=== PATIENT | female | born 1940 | race Caucasian/White ===

== ENCOUNTER → 2021-07-06 | Outpatient (CLI) | payer SELFPAY | LOC: M LABSMTC 12:09 | PROVIDERS: ATTEND Pediatrics | DX: Z20.822 Contact with and (suspected) exposure to COVID-19 (principal) ==

== ENCOUNTER 2024-04-30 10:21 | Day surgery (SDC) | payer BC, MEDICARE ==
[~2024-04-30] VITALS: Ht 154.9 cm; Wt 63.0 kg
[~2024-04-30 10:21] MED LIST: ATROPINE SULFATE 1% OPHTH SOLN 2ML BTL OS SCH; FOLI1TAB11 PO; GABA-1171 PO; LEVO150T7 PO; LIDOCAINE 3.5 % 1ML OPHTH TOPICAL GEL OU ONE; OFLOXACIN 0.3 % (OCUFLOX) OPTH SOL 5ML OS ONE; PANT40TA29 PO; PHENYLEPHRINE 10% OPHTH SOL 5ML OS PRN; PHENYLEPHRINE 2.5% OPHTH SOL 2ML OS SCH; THERTAB52 PO; TROPICAMIDE 1% OPHTH SOLN 15ML OS SCH; ZOLO100T PO
[2024-04-30] MEDS ORDERED: fentaNYL 100 MCG/2 ML INJECTION As Ordered ONE (11:30)
[2024-04-30] MEDS: LIDOCAINE 1% SDV 5ML VIAL As Ordered ONE (13:52)
[2024-04-30] MEDS: BSS IRRIG/VANCO(10MG)/TOBRA(5MG)/EPINEPH(1:1000-0.5CC)500ML BAG-ORONLY As Ordered ONE (13:52)
[2024-04-30] MEDS: CEFUROXIME 1MG/0.1ML INTRACAMERAL INJ As Ordered ONE (14:00)
[2024-04-30 14:05] VITALS: BP 175/76; TEMP 97.1; O2SAT 94
== END 2024-04-30 14:27 | disposition home or self-care (01) ==
LOC: M SDC 10:21
PROVIDERS: ATTEND Ophthalmology
DX: H25.12 Age-related nuclear cataract, left eye (principal); I10 Essential (primary) hypertension; E03.9 Hypothyroidism, unspecified; K21.9 Gastro-esophageal reflux disease without esophagitis; F41.9 Anxiety disorder, unspecified; F32.A Depression, unspecified; Z79.899 Other long term (current) drug therapy; Z98.84 Bariatric surgery status; G47.33 Obstructive sleep apnea (adult) (pediatric)
CPT/HCPCS: 66984; 92015; J0697; J3010; V2632

== ENCOUNTER 2024-05-21 06:05 | Day surgery (SDC) | payer MEDICARE ==
[~2024-05-21] VITALS: Ht 152.4 cm; Wt 59.7 kg
[~2024-05-21 06:05] MED LIST changes: -ATROPINE SULFATE 1% OPHTH SOLN 2ML BTL OS SCH; -LIDOCAINE 3.5 % 1ML OPHTH TOPICAL GEL OU ONE; -OFLOXACIN 0.3 % (OCUFLOX) OPTH SOL 5ML OS ONE; +PHENYLEPHRINE 10% OPHTH SOL 5ML OD PRN; -PHENYLEPHRINE 10% OPHTH SOL 5ML OS PRN; -PHENYLEPHRINE 2.5% OPHTH SOL 2ML OS SCH; -TROPICAMIDE 1% OPHTH SOLN 15ML OS SCH
[2024-05-21] MEDS: TROPICAMIDE 1% OPHTH SOLN 15ML OD SCH (06:46)
[2024-05-21] MEDS: PHENYLEPHRINE 2.5% OPHTH SOL 2ML OD SCH (06:46)
[2024-05-21] MEDS: CYCLOPENTOLATE 1% OPHTH SOLN 2ML BTL OD SCH (06:47)
[2024-05-21] MEDS: OFLOXACIN 0.3 % (OCUFLOX) OPTH SOL 5ML OD ONE (06:47)
[2024-05-21] MEDS: LIDOCAINE 3.5 % 1ML OPHTH TOPICAL GEL OU ONE (06:47)
[2024-05-21] MEDS ORDERED: MIDAZOLAM INJ 2MG/2ML VIAL As Ordered ONE (07:08)
[2024-05-21] MEDS: CEFUROXIME 1MG/0.1ML INTRACAMERAL INJ As Ordered ONE (07:46)
[2024-05-21] MEDS: BSS IRRIG/VANCO(10MG)/TOBRA(5MG)/EPINEPH(1:1000-0.5CC)500ML BAG-ORONLY As Ordered ONE (07:46)
[2024-05-21] MEDS: LIDOCAINE 1% SDV 5ML VIAL As Ordered ONE (07:46)
[2024-05-21 08:00] VITALS: BP 139/85; TEMP 96.9; O2SAT 96
== END 2024-05-21 08:21 | disposition home or self-care (01) ==
LOC: M SDC 06:05
PROVIDERS: ATTEND Ophthalmology
DX: H25.11 Age-related nuclear cataract, right eye (principal); I10 Essential (primary) hypertension; E03.9 Hypothyroidism, unspecified; K21.9 Gastro-esophageal reflux disease without esophagitis; G47.30 Sleep apnea, unspecified; G62.9 Polyneuropathy, unspecified; Z79.899 Other long term (current) drug therapy; Z79.890 Hormone replacement therapy; Z90.710 Acquired absence of both cervix and uterus; Z98.84 Bariatric surgery status
CPT/HCPCS: 66984; 92015; J0697; J2250; V2632

== ENCOUNTER 2024-07-19 02:03 | Inpatient (IN) | payer MEDICARE ==
[2024-07-19] VITALS (7 sets, daily range): BP systolic 107–135; BP diastolic 59–65; TEMP 97.7–98.2; O2SAT 96–97
[~2024-07-19] VITALS: Ht 152.4 cm; Wt 57.7 kg
[~2024-07-19 02:03] MED LIST changes: -PHENYLEPHRINE 10% OPHTH SOL 5ML OD PRN
[2024-07-19] MEDS: ONDANSETRON 4MG 2ML VIAL IV ONE ×2 (03:21→07:48)
[2024-07-19] MEDS: LR 1,000 ML IV ONE (08:00)
[2024-07-19] MEDS ORDERED: ISOVUE-370 76% 100ML VIAL As Ordered ONE (08:39)
[2024-07-19] MEDS: NS (Normal Saline) 0.9% 1,000 ML IV ONE (08:45)
[2024-07-19] MEDS: PANTOPRAZOLE 40MG VIAL IV ONE (09:10)
[2024-07-19] MEDS: MORPHINE 4 MG/ML 1ML VIAL IV ONE ×2 (09:23→10:42)
[2024-07-19 09:33] LABS: LIPASE 27 U/L (12-53)
[2024-07-19 09:34] LABS: BASO % 0.3 % (0.0-1.0); EOS % 0.6 % (0.0-3.0); HEMATOCRIT 23.6 % (36.0-47.0); HEMOGLOBIN 7.8 g/dl (12.0-15.5); LYMPH # 0.6 10^3/uL (1.5-5.0); MEAN CORPUSCULAR HEMOGLOBIN 32.6 pg (27.0-33.0); MEAN CORPUSCULAR HGB CONC 33.1 g/dl (32.0-36.5); MEAN CORPUSCULAR VOLUME 98.7 fl (80.0-96.0); MONO # 0.3 10^3/uL (0.0-0.8); MONO % 10.2 % (2.0-8.0); NEUTROPHILS # 2.2 10^3/uL (1.5-8.5); NEUTROPHILS % 69.6 % (36.0-66.0); PLATELET COUNT, AUTOMATED 143 10^3/uL (150-450); RED BLOOD COUNT 2.39 10^6/uL (4.00-5.40); WHITE BLOOD COUNT 3.2 10^3/uL (4.0-10.0)
[2024-07-19 09:35] LABS: ALBUMIN 2.5 G/DL (3.2-5.2); ALKALINE PHOSPHATASE 74 U/L (35-104); ALT/SGPT 17 U/L (7.0-40); AST/SGOT 22 U/L (<34); BILIRUBIN,TOTAL 0.6 MG/DL (0.3-1.2); BLOOD UREA NITROGEN 21 MG/DL (9-23); CALCIUM LEVEL 7.6 MG/DL (8.3-10.6); CARBON DIOXIDE LEVEL 24 MMOL/L (20-31); CHLORIDE LEVEL 109 MMOL/L (98-107); CREATININE FOR GFR 0.85 MG/DL (0.55-1.30); GLOMERULAR FILTRATION RATE > 60.0 (>32); GLUCOSE, FASTING 88 MG/DL (74-106); POTASSIUM SERUM 3.7 MMOL/L (3.5-5.1); SODIUM LEVEL 142 MMOL/L (136-145); TOTAL PROTEIN 5.2 G/DL (5.7-8.2)
[2024-07-19] MEDS: NS 0.9% IV ONE (10:15)
[2024-07-19] MEDS: [UNRECOGNIZED DRUG - OTHER] IV ONE (10:15)
[2024-07-19] MEDS ORDERED: HYDROMORPHONE HCL 0.5 MG/ 0.5 ML SYRINGE IV PRN ×2 (10:30→11:20)
[2024-07-19] MEDS ORDERED: VASOPRESSIN IN 0.9 % NACL 20 UNIT in IV 1 EA IV SCH (10:40)
[2024-07-19] MEDS ORDERED: NOREPINEPHRINE 4MG IN D5 250ML 4 MG in IV 1 EA IV SCH (10:40)
[2024-07-19] MEDS ORDERED: DESFLURANE 240 ML INHALANT As Ordered ONE (10:42)
[2024-07-19] MEDS ORDERED: SEVOFLURANE INHAL SOLN 250 ML BTL As Ordered ONE (10:42)
[2024-07-19 11:43] LABS: C REACTIVE PROTEIN QUANTITATIV 17.31 MG/DL (<1.0)
[2024-07-19] MEDS ORDERED: ETOMIDATE INJ 20MG/10ML VIAL As Ordered ONE (11:47)
[2024-07-19] MEDS ORDERED: propofoL 200 MG/20 ML VIAL As Ordered ONE (11:47)
[2024-07-19] MEDS ORDERED: SUGAMMADEX SODIUM 500 MG/5 ML VIAL (BRIDION) As Ordered ONE (11:47)
[2024-07-19] MEDS ORDERED: fentaNYL 100 MCG/2 ML INJECTION As Ordered ONE (11:47)
[2024-07-19] MEDS ORDERED: ONDANSETRON 4MG 2ML VIAL As Ordered ONE (11:47)
[2024-07-19] MEDS ORDERED: ROCURONIUM BROMIDE 50MG/5ML VIAL As Ordered ONE (11:47)
[2024-07-19] MEDS ORDERED: LIDOCAINE 2% 100MG/5ML SDV (FOR ANES.) As Ordered ONE (11:47)
[2024-07-19 11:55] LABS: PROCALCITONIN 0.14 ng/ml
[2024-07-19] MEDS ORDERED: ePHEDrine SULFATE 25 MG/5 ML(5MG/ML) SYRINGE As Ordered ONE (12:03)
[2024-07-19] MEDS: ACETAMINOPHEN 500 MG TAB PO ONE (14:31)
[2024-07-19] MEDS: PIPERACILLIN/TAZOBACTAM SOD 4.5 GM in DEXTROSE 5% (D5W) ADV/MINI-BAG 50 ML IV ONE (14:31)
[2024-07-19] MEDS: SUCRALFATE 1 GM TAB PO SCH (14:31)
[2024-07-19] MEDS: NS (Normal Saline) 0.9% 1,000 ML IV SCH (14:39)
[2024-07-19] MEDS ORDERED: ACET25TA12 PO (16:26)
[2024-07-19] MEDS ORDERED: ZINC30TA2 PO (16:26)
[2024-07-19] MEDS ORDERED: HOME MED LIST COMPLETE! XX SCH (16:30)
[2024-07-19] MEDS: PIPERACILLIN/TAZOBACTAM SOD 3.375 GM in DEXTROSE 5% (D5W) ADV/MINI-BAG 50 ML IV SCH (17:14)
[2024-07-19] MEDS: LEVOTHYROXINE 100MCG (0.1MG) 5ML SDV PF (SOLUTION FORM) IV SCH (18:27)
[2024-07-19] MEDS: FLUCONAZOLE 100 MG in IV 1 EA IV SCH (18:27)
[2024-07-19] MEDS: PANTOPRAZOLE 40MG VIAL IV SCH (19:49)
[2024-07-19] MEDS: KETOROLAC 30 MG/ML 1ML VIAL IV PRN (19:49)
[2024-07-20 01:42] VITALS: BP 116/63; TEMP 97.5; O2SAT 97
[2024-07-20 04:01] VITALS: BP 141/68; TEMP 97.5; O2SAT 96
[2024-07-20 06:43] LABS: KETONE, URINE AUTO RFX NEGATIVE (NEGATIVE); LEUKOCYTE ESTERASE UR AUTO RFX NEGATIVE (NEGATIVE); NITRITE, URINE AUTO RFX NEGATIVE (NEGATIVE); RBC, URINE AUTO RFX 1 /HPF (0-3); SQUAM EPITHELIAL CELL UR AURFX 0 /HPF (0-6); WBC, URINE AUTO RFX 6 /HPF (0-3)
[2024-07-20 06:59] LABS: HEMATOCRIT 28.9 % (36.0-47.0); HEMOGLOBIN 9.1 g/dl (12.0-15.5); MEAN CORPUSCULAR HEMOGLOBIN 31.8 pg (27.0-33.0); MEAN CORPUSCULAR HGB CONC 31.5 g/dl (32.0-36.5); PLATELET COUNT, AUTOMATED 179 10^3/uL (150-450); RED BLOOD COUNT 2.86 10^6/uL (4.00-5.40); WHITE BLOOD COUNT 5.9 10^3/uL (4.0-10.0)
[2024-07-20 07:23] LABS: ALBUMIN 2.3 G/DL (3.2-5.2); BILIRUBIN,TOTAL 0.6 MG/DL (0.3-1.2); CALCIUM LEVEL 6.8 MG/DL (8.3-10.6); CREATININE FOR GFR 0.98 MG/DL (0.55-1.30); TOTAL PROTEIN 5.1 G/DL (5.7-8.2)
[2024-07-20 08:43] VITALS: BP 137/64; TEMP 98.4; O2SAT 94
[2024-07-20] MEDS: ENOXAPARIN 30MG/0.3ML SYRINGE (J1650 PER 10MG) SC SCH (08:51)
[2024-07-20] MEDS: MORPHINE 2 MG/ML 1ML VIAL IV PRN (10:49)
[2024-07-20 12:00] VITALS: BP 133/65; TEMP 97.9; O2SAT 97
[2024-07-20 16:19] VITALS: BP 130/67; TEMP 97.9; O2SAT 98
[2024-07-20 20:09] VITALS: BP 149/79; TEMP 98.5; O2SAT 97
[2024-07-21 01:32] VITALS: O2SAT 93
[2024-07-21 04:11] VITALS: BP 139/73; TEMP 98.1; O2SAT 94
[2024-07-21 06:35] LABS: HEMATOCRIT 25.2 % (36.0-47.0); HEMOGLOBIN 7.8 g/dl (12.0-15.5); MEAN CORPUSCULAR HEMOGLOBIN 31.5 pg (27.0-33.0); MEAN CORPUSCULAR VOLUME 101.6 fl (80.0-96.0); PLATELET COUNT, AUTOMATED 177 10^3/uL (150-450); RED BLOOD COUNT 2.48 10^6/uL (4.00-5.40); WHITE BLOOD COUNT 4.9 10^3/uL (4.0-10.0)
[2024-07-21 07:08] LABS: ALBUMIN 1.9 G/DL (3.2-5.2); ALKALINE PHOSPHATASE 64 U/L (35-104); ALT/SGPT 20 U/L (7.0-40); AST/SGOT 20 U/L (<34); BILIRUBIN,TOTAL 0.6 MG/DL (0.3-1.2); BLOOD UREA NITROGEN 17 MG/DL (9-23); CALCIUM LEVEL 7.6 MG/DL (8.3-10.6); CARBON DIOXIDE LEVEL 22 MMOL/L (20-31); CHLORIDE LEVEL 110 MMOL/L (98-107); CREATININE FOR GFR 0.85 MG/DL (0.55-1.30); GLOMERULAR FILTRATION RATE > 60.0 (>32); GLUCOSE, FASTING 73 MG/DL (74-106); POTASSIUM SERUM 3.7 MMOL/L (3.5-5.1); SODIUM LEVEL 143 MMOL/L (136-145); TOTAL PROTEIN 4.7 G/DL (5.7-8.2)
[2024-07-21 11:00] VITALS: BP 142/80; TEMP 98.1; O2SAT 96
[2024-07-21 12:19] LABS: HEMATOCRIT 27.7 % (36.0-47.0); HEMOGLOBIN 8.8 g/dl (12.0-15.5)
[2024-07-21] MEDS: FLUCONAZOLE 200 MG in IV 1 EA IV SCH (18:26)
[2024-07-21 19:40] VITALS: BP 149/79; TEMP 96.8; O2SAT 96
[2024-07-21] MEDS: RAMELTEON 8 MG TAB (ROZEREM) PO ONE (23:47)
[2024-07-22] MEDS: D5W/LR 1,000 ML IV SCH (00:18)
[2024-07-22 04:02] VITALS: BP 146/76; TEMP 97.9; O2SAT 96
[2024-07-22 07:33] LABS: HEMATOCRIT 26.8 % (36.0-47.0); HEMOGLOBIN 8.8 g/dl (12.0-15.5); MEAN CORPUSCULAR HGB CONC 32.8 g/dl (32.0-36.5); MEAN CORPUSCULAR VOLUME 97.5 fl (80.0-96.0); PLATELET COUNT, AUTOMATED 216 10^3/uL (150-450); RED BLOOD COUNT 2.75 10^6/uL (4.00-5.40)
[2024-07-22 08:13] LABS: ALBUMIN 1.8 G/DL (3.2-5.2); ALKALINE PHOSPHATASE 62 U/L (35-104); ALT/SGPT 15 U/L (7.0-40); AST/SGOT 16 U/L (<34); BILIRUBIN,TOTAL 0.5 MG/DL (0.3-1.2); BLOOD UREA NITROGEN 11 MG/DL (9-23); CALCIUM LEVEL 7.9 MG/DL (8.3-10.6); CARBON DIOXIDE LEVEL 20 MMOL/L (20-31); CHLORIDE LEVEL 110 MMOL/L (98-107); CREATININE FOR GFR 0.74 MG/DL (0.55-1.30); GLOMERULAR FILTRATION RATE > 60.0 (>32); GLUCOSE, FASTING 88 MG/DL (74-106); POTASSIUM SERUM 3.3 MMOL/L (3.5-5.1); SODIUM LEVEL 142 MMOL/L (136-145); TOTAL PROTEIN 4.6 G/DL (5.7-8.2)
[2024-07-22] MEDS: KCL 10MEQ/100ML SWI (KRUN) 10 MEQ in IV 1 EA IV SCH (09:26)
[2024-07-22] MEDS ORDERED: GASTROGRAFIN SOLUTION 30ML As Ordered ONE (10:11)
[2024-07-22 12:00] VITALS: BP 154/83; TEMP 97.9; O2SAT 99
[2024-07-22 19:36] VITALS: BP 154/84; TEMP 97.3; O2SAT 99
[2024-07-23 00:12] LABS: Estimated Ave Glu(eAG) 4.7 mmol/L; Hemoglobin A1c 4.6 (<5.7)
[2024-07-23 03:56] VITALS: BP 155/83; TEMP 97.7; O2SAT 96
[2024-07-23 06:19] LABS: HEMATOCRIT 30.9 % (36.0-47.0); HEMOGLOBIN 10.1 g/dl (12.0-15.5); MEAN CORPUSCULAR HEMOGLOBIN 31.7 pg (27.0-33.0); MEAN CORPUSCULAR HGB CONC 32.7 g/dl (32.0-36.5); MEAN CORPUSCULAR VOLUME 96.9 fl (80.0-96.0); PLATELET COUNT, AUTOMATED 231 10^3/uL (150-450); RED BLOOD COUNT 3.19 10^6/uL (4.00-5.40); WHITE BLOOD COUNT 4.3 10^3/uL (4.0-10.0)
[2024-07-23 07:06] LABS: ALKALINE PHOSPHATASE 68 U/L (35-104); ALT/SGPT 15 U/L (7.0-40); AST/SGOT 21 U/L (<34); BILIRUBIN,TOTAL 0.5 MG/DL (0.3-1.2); BLOOD UREA NITROGEN 8 MG/DL (9-23); CARBON DIOXIDE LEVEL 23 MMOL/L (20-31); CHLORIDE LEVEL 110 MMOL/L (98-107); CREATININE FOR GFR 0.74 MG/DL (0.55-1.30); GLOMERULAR FILTRATION RATE > 60.0 (>32); GLUCOSE, FASTING 97 MG/DL (74-106); POTASSIUM SERUM 2.9 MMOL/L (3.5-5.1); SODIUM LEVEL 142 MMOL/L (136-145); TOTAL PROTEIN 5.1 G/DL (5.7-8.2)
[2024-07-23 08:21] VITALS: BP 162/81; TEMP 98.1; O2SAT 98
[2024-07-23] MEDS: POTASSIUM CHLORIDE 10% LIQ 20MEQ/15ML UDC PO SCH (09:06)
[2024-07-23] MEDS: KCL 10MEQ/100ML SWI (KRUN) 10 MEQ in IV 1 EA IV SCH (09:44)
[2024-07-23] MEDS: ONDANSETRON 4MG 2ML VIAL IV PRN (11:18)
[2024-07-23] MEDS: FLUCONAZOLE 100 MG TAB PO SCH (13:44)
[2024-07-23 20:54] VITALS: BP 143/79; TEMP 97.7
[2024-07-23 21:00] VITALS: BP 143/79; TEMP 97.7
[2024-07-24 04:06] VITALS: BP 147/80; TEMP 98.1
[2024-07-24 06:40] LABS: HEMATOCRIT 28.6 % (36.0-47.0); HEMOGLOBIN 9.3 g/dl (12.0-15.5); MEAN CORPUSCULAR HEMOGLOBIN 31.2 pg (27.0-33.0); MEAN CORPUSCULAR HGB CONC 32.5 g/dl (32.0-36.5); PLATELET COUNT, AUTOMATED 267 10^3/uL (150-450); RED BLOOD COUNT 2.98 10^6/uL (4.00-5.40); WHITE BLOOD COUNT 4.7 10^3/uL (4.0-10.0)
[2024-07-24 07:39] LABS: ALBUMIN 2.1 G/DL (3.2-5.2); ALKALINE PHOSPHATASE 67 U/L (35-104); ALT/SGPT 12 U/L (7.0-40); AST/SGOT 17 U/L (<34); BILIRUBIN,TOTAL 0.4 MG/DL (0.3-1.2); BLOOD UREA NITROGEN 7 MG/DL (9-23); CALCIUM LEVEL 8.3 MG/DL (8.3-10.6); CARBON DIOXIDE LEVEL 25 MMOL/L (20-31); CHLORIDE LEVEL 110 MMOL/L (98-107); CREATININE FOR GFR 0.75 MG/DL (0.55-1.30); GLOMERULAR FILTRATION RATE > 60.0 (>32); GLUCOSE, FASTING 88 MG/DL (74-106); POTASSIUM SERUM 4.1 MMOL/L (3.5-5.1); SODIUM LEVEL 141 MMOL/L (136-145); TOTAL PROTEIN 5.1 G/DL (5.7-8.2)
[2024-07-24 12:18] VITALS: BP 140/79; TEMP 97.3; O2SAT 98
[2024-07-24 13:37] VITALS: BP_SYST 149; BP_SYST 154; BP_SYST 170; BP_DIAS 104; BP_DIAS 78; BP_DIAS 80
[2024-07-24 20:11] VITALS: BP 149/77; TEMP 97.7; O2SAT 99
[2024-07-25] MEDS: MORPHINE 2 MG/ML 1ML VIAL IV PRN (03:03)
[2024-07-25 04:00] VITALS: BP 102/69; TEMP 97.9; O2SAT 98
[2024-07-25 07:08] LABS: HEMATOCRIT 29.3 % (36.0-47.0); HEMOGLOBIN 9.7 g/dl (12.0-15.5); MEAN CORPUSCULAR HEMOGLOBIN 32.4 pg (27.0-33.0); MEAN CORPUSCULAR HGB CONC 33.1 g/dl (32.0-36.5); PLATELET COUNT, AUTOMATED 274 10^3/uL (150-450); RED BLOOD COUNT 2.99 10^6/uL (4.00-5.40); WHITE BLOOD COUNT 5.1 10^3/uL (4.0-10.0)
[2024-07-25 07:30] VITALS: BP 117/56; TEMP 98.2; O2SAT 98
[2024-07-25 07:40] LABS: ALBUMIN 2.2 G/DL (3.2-5.2); ALKALINE PHOSPHATASE 73 U/L (35-104); ALT/SGPT 12 U/L (7.0-40); AST/SGOT 16 U/L (<34); BILIRUBIN,TOTAL 0.4 MG/DL (0.3-1.2); BLOOD UREA NITROGEN 6 MG/DL (9-23); CALCIUM LEVEL 8.5 MG/DL (8.3-10.6); CARBON DIOXIDE LEVEL 25 MMOL/L (20-31); CHLORIDE LEVEL 110 MMOL/L (98-107); CREATININE FOR GFR 0.86 MG/DL (0.55-1.30); GLOMERULAR FILTRATION RATE > 60.0 (>32); GLUCOSE, FASTING 83 MG/DL (74-106); POTASSIUM SERUM 4.4 MMOL/L (3.5-5.1); SODIUM LEVEL 141 MMOL/L (136-145); TOTAL PROTEIN 5.3 G/DL (5.7-8.2)
[2024-07-25 08:00] VITALS: BP 117/56; TEMP 98.2; O2SAT 98
[2024-07-25 12:30] VITALS: BP 134/71; TEMP 98.2; O2SAT 97
[2024-07-25] MEDS: AUGMENTIN 875 MG TAB PO SCH (12:47)
[2024-07-25] MEDS: NORCO, ANEXSIA 5/325MG TABLET (HYDROcodone/ACETAMINOPHEN) PO PRN (12:48)
[2024-07-25 20:09] VITALS: BP 138/72; TEMP 97.9; O2SAT 96
[2024-07-26 04:25] VITALS: BP 142/77; TEMP 97.9; O2SAT 96
[2024-07-26 06:19] LABS: HEMOGLOBIN 8.4 g/dl (12.0-15.5); MEAN CORPUSCULAR HEMOGLOBIN 32.3 pg (27.0-33.0); MEAN CORPUSCULAR HGB CONC 32.3 g/dl (32.0-36.5); PLATELET COUNT, AUTOMATED 298 10^3/uL (150-450); WHITE BLOOD COUNT 5.5 10^3/uL (4.0-10.0)
[2024-07-26 06:41] LABS: ALBUMIN 2.1 G/DL (3.2-5.2); ALKALINE PHOSPHATASE 71 U/L (35-104); ALT/SGPT 11 U/L (7.0-40); AST/SGOT 14 U/L (<34); BILIRUBIN,TOTAL 0.3 MG/DL (0.3-1.2); BLOOD UREA NITROGEN 6 MG/DL (9-23); CALCIUM LEVEL 8.6 MG/DL (8.3-10.6); CARBON DIOXIDE LEVEL 24 MMOL/L (20-31); CHLORIDE LEVEL 110 MMOL/L (98-107); CREATININE FOR GFR 0.88 MG/DL (0.55-1.30); GLOMERULAR FILTRATION RATE > 60.0 (>32); GLUCOSE, FASTING 81 MG/DL (74-106); POTASSIUM SERUM 4.4 MMOL/L (3.5-5.1); SODIUM LEVEL 144 MMOL/L (136-145)
[2024-07-26] MEDS: POTASSIUM CHLORIDE 10MEQ SR TABLET PO SCH (08:50)
[2024-07-26 12:00] VITALS: BP 143/74; TEMP 98.1; O2SAT 98
[2024-07-26 19:25] VITALS: BP 145/75; TEMP 97.7; O2SAT 96
[2024-07-27 04:02] VITALS: BP 148/75; TEMP 97.9; O2SAT 97
[2024-07-27] MEDS: LEVOTHYROXINE 150MCG TABLET (0.15MG) PO SCH (05:48)
[2024-07-28 03:44] VITALS: BP 138/80; TEMP 97.9; O2SAT 92
[2024-07-28] MEDS: OMEPRAZOLE 20MG CAP PO SCH (09:16)
[2024-07-29 04:00] VITALS: BP 148/70; TEMP 97.9; O2SAT 96
[2024-07-29] MEDS ORDERED: PANT40TA29 PO (10:44)
[2024-07-29] MEDS ORDERED: SUCR1TA PO (10:44)
== END 2024-07-29 12:40 | DRG 326 ==
LOC: M ED 02:03 → EDBD 02:03 → M SDC 10:35 → M RR INP 13:01 → M MS5PR 14:25
PROVIDERS: ADMIT Surgery; ATTEND Student in an Organized Health Care Education/Training Program
PROC: 8E0W4CZ Robotic Assisted Procedure of Trunk Region, Percutaneous Endoscopic Approach (ICD-10-PCS; 2024-07-19)
PROC: 0DQ68ZZ Repair Stomach, Via Natural or Artificial Opening Endoscopic (ICD-10-PCS; principal; 2024-07-19 10:20)
DX: K28.1 Acute gastrojejunal ulcer with perforation (principal); K65.9 Peritonitis, unspecified; S42.201A Unspecified fracture of upper end of right humerus, initial encounter for closed fracture; F32.A Depression, unspecified; R73.03 Prediabetes; I10 Essential (primary) hypertension; E03.9 Hypothyroidism, unspecified; W00.0XXA Fall on same level due to ice and snow, initial encounter; K21.9 Gastro-esophageal reflux disease without esophagitis; Z98.84 Bariatric surgery status; I95.1 Orthostatic hypotension; Z96.651 Presence of right artificial knee joint; Y92.009 Unspecified place in unspecified non-institutional (private) residence as the place of occurrence of the external cause; Z66 Do not resuscitate

== ENCOUNTER → 2024-08-13 | Outpatient (CLI) | payer MEDICARE ==
[~2024-08-13] MED LIST changes: +ACET25TA12 PO; +SUCR1TA PO; +ZINC30TA2 PO
== END ==
LOC: M SOG 07:48
PROVIDERS: ATTEND Physician Assistant
DX: M84.421A Pathological fracture, right humerus, initial encounter for fracture (principal)

== ENCOUNTER 2024-09-06 15:28 | Inpatient (IN) | payer MEDICARE ==
[~2024-09-06] VITALS: Ht 152.4 cm; Wt 52.8 kg
[2024-09-06] MEDS: D5W 1,000 ML IV SCH (15:45)
[2024-09-06 16:06] LABS: BASO % 0.2 % (0.0-1.0); EOS % 0.1 % (0.0-3.0); HEMATOCRIT 37.3 % (36.0-47.0); HEMOGLOBIN 12.7 g/dl (12.0-15.5); LYMPH # 0.5 10^3/uL (1.5-5.0); MEAN CORPUSCULAR HEMOGLOBIN 31.8 pg (27.0-33.0); MEAN CORPUSCULAR VOLUME 93.5 fl (80.0-96.0); MONO # 0.6 10^3/uL (0.0-0.8); MONO % 6.2 % (2.0-8.0); NEUTROPHILS # 8.7 10^3/uL (1.5-8.5); NEUTROPHILS % 88.2 % (36.0-66.0); PLATELET COUNT, AUTOMATED 211 10^3/uL (150-450); RED BLOOD COUNT 3.99 10^6/uL (4.00-5.40); WHITE BLOOD COUNT 9.8 10^3/uL (4.0-10.0)
[2024-09-06 16:24] LABS: ETHYL ALCOHOL (ETHANOL) 0.007 % (0.000-0.010)
[2024-09-06 16:25] LABS: CPK CREATINE PHOSPHOKINASE 36 U/L (34-145); SALICYLATE LEVEL < 3.0 MG/DL (<30)
[2024-09-06 16:40] LABS: ALBUMIN 3.5 G/DL (3.2-5.2); ALKALINE PHOSPHATASE 101 U/L (35-104); ALT/SGPT 13 U/L (7.0-40); AST/SGOT 12 U/L (<34); BILIRUBIN,DIRECT 0.2 MG/DL (<0.4); BILIRUBIN,TOTAL 0.4 MG/DL (0.3-1.2); BLOOD UREA NITROGEN 14 MG/DL (9-23); CALCIUM LEVEL 9.2 MG/DL (8.3-10.6); CARBON DIOXIDE LEVEL 27 MMOL/L (20-31); CHLORIDE LEVEL 102 MMOL/L (98-107); CREATININE FOR GFR 0.68 MG/DL (0.55-1.30); GLOMERULAR FILTRATION RATE > 60.0 (>32); GLUCOSE, FASTING 110 MG/DL (74-106); POTASSIUM SERUM 2.3 MMOL/L (3.5-5.1); SODIUM LEVEL 139 MMOL/L (136-145); THYROID STIMULATING HORMONE 1.361 uIU/ML (0.55-4.78); TOTAL PROTEIN 6.6 G/DL (5.7-8.2)
[2024-09-06] MEDS: DEXTROSE 50% 50ML SYRINGE IV STA ×3 (16:58→22:08)
[2024-09-06] MEDS: KCL 10MEQ/100ML SWI (KRUN) 10 MEQ in IV 1 EA IV ONE ×2 (16:59→18:39)
[2024-09-06] MEDS: POTASSIUM CHLORIDE 10MEQ SR TABLET PO ONE ×2 (17:06→22:09)
[2024-09-06] MEDS: D10W 1,000 ML IV SCH ×2 (17:13→23:26)
[2024-09-06 21:42] LABS: BLOOD UREA NITROGEN 12 MG/DL (9-23); CARBON DIOXIDE LEVEL 29 MMOL/L (20-31); CHLORIDE LEVEL 101 MMOL/L (98-107); GLOMERULAR FILTRATION RATE > 60.0 (>32); GLUCOSE, FASTING 43 MG/DL (74-106); POTASSIUM SERUM 2.9 MMOL/L (3.5-5.1); SODIUM LEVEL 138 MMOL/L (136-145)
[2024-09-06 22:07] LABS: AMPHETAMINES LEVEL URINE NEGATIVE (NEGATIVE); BARBITURATES URINE NEGATIVE (NEGATIVE); BENZODIAZEPINES URINE NEGATIVE (NEGATIVE); COCAINE METABOLITE URINE NEGATIVE (NEGATIVE); METHADONE URINE NEGATIVE (NEGATIVE); OPIATES URINE NEGATIVE (NEGATIVE); PHENCYCLIDINE URINE NEGATIVE (NEGATIVE)
[2024-09-06] MEDS: GLUCAGON INJ 1MG VIAL IM STA (22:09)
[2024-09-06 22:31] LABS: CANNABINOIDS URINE POSITIVE (NEGATIVE)
[2024-09-06] MEDS: GLYCERIN ADULT SUPP PR ONE (23:00)
[2024-09-06] MEDS ORDERED: MOM 30ML SUSPENSION UDC PO PRN (23:00)
[2024-09-06] MEDS: PANTOPRAZOLE 40MG VIAL IV SCH (23:00)
[2024-09-06] MEDS ORDERED: MAALOX 30 ML SUSP *UDC PO PRN (23:00)
[2024-09-06] MEDS ORDERED: GLUCAGON INJ 1MG VIAL SC PRN (23:10)
[2024-09-06] MEDS ORDERED: GLUCOSE 4 GM CHEW PO PRN (23:10)
[2024-09-06 23:53] VITALS: BP 123/60; TEMP 97.7; O2SAT 98
[2024-09-07] MEDS: MIRALAX *UNIT DOSE* 17GM PACKET PO SCH (01:04)
[2024-09-07] MEDS: POTASSIUM CHLORIDE 10MEQ SR TABLET PO ONE (01:04)
[2024-09-07] MEDS: DEXTROSE 50% 50ML SYRINGE IV PRN (01:10)
[2024-09-07 01:11] LABS: BLOOD UREA NITROGEN 13 MG/DL (9-23); CALCIUM LEVEL 8.8 MG/DL (8.3-10.6); CARBON DIOXIDE LEVEL 29 MMOL/L (20-31); CHLORIDE LEVEL 98 MMOL/L (98-107); CREATININE FOR GFR 0.57 MG/DL (0.55-1.30); GLOMERULAR FILTRATION RATE > 60.0 (>32); GLUCOSE, FASTING 67 MG/DL (74-106); POTASSIUM SERUM 3.3 MMOL/L (3.5-5.1); SODIUM LEVEL 136 MMOL/L (136-145)
[2024-09-07 02:38] LABS: THYROID STIMULATING HORMONE 1.126 uIU/ML (0.55-4.78)
[2024-09-07 04:33] LABS: HEMATOCRIT 34.1 % (36.0-47.0); HEMOGLOBIN 11.4 g/dl (12.0-15.5); MEAN CORPUSCULAR HEMOGLOBIN 31.7 pg (27.0-33.0); MEAN CORPUSCULAR HGB CONC 33.4 g/dl (32.0-36.5); MEAN CORPUSCULAR VOLUME 94.7 fl (80.0-96.0); PLATELET COUNT, AUTOMATED 212 10^3/uL (150-450); WHITE BLOOD COUNT 7.4 10^3/uL (4.0-10.0)
[2024-09-07 04:51] LABS: ALBUMIN 2.8 G/DL (3.2-5.2); ALKALINE PHOSPHATASE 86 U/L (35-104); ALT/SGPT 11 U/L (7.0-40); AST/SGOT 10 U/L (<34); BILIRUBIN,TOTAL 0.4 MG/DL (0.3-1.2); BLOOD UREA NITROGEN 11 MG/DL (9-23); CALCIUM LEVEL 8.8 MG/DL (8.3-10.6); CARBON DIOXIDE LEVEL 28 MMOL/L (20-31); CHLORIDE LEVEL 101 MMOL/L (98-107); CREATININE FOR GFR 0.57 MG/DL (0.55-1.30); GLOMERULAR FILTRATION RATE > 60.0 (>32); GLUCOSE, FASTING 69 MG/DL (74-106); POTASSIUM SERUM 4.5 MMOL/L (3.5-5.1); SODIUM LEVEL 135 MMOL/L (136-145); TOTAL PROTEIN 5.6 G/DL (5.7-8.2)
[2024-09-07 05:32] VITALS: BP 134/63; TEMP 97.7; O2SAT 97
[2024-09-07 07:34] VITALS: BP 113/57; TEMP 97.2; O2SAT 95
[2024-09-07 08:01] LABS: BLOOD UREA NITROGEN 10 MG/DL (9-23); CALCIUM LEVEL 8.9 MG/DL (8.3-10.6); CARBON DIOXIDE LEVEL 28 MMOL/L (20-31); CHLORIDE LEVEL 99 MMOL/L (98-107); CREATININE FOR GFR 0.58 MG/DL (0.55-1.30); GLOMERULAR FILTRATION RATE > 60.0 (>32); GLUCOSE, FASTING 95 MG/DL (74-106); SODIUM LEVEL 133 MMOL/L (136-145)
[2024-09-07] MEDS: METAMUCIL (PSYLLIUM) PACKET PO SCH (09:00)
[2024-09-07] MEDS: DOCUSATE SODIUM 100MG CAPSULE PO SCH (09:00)
[2024-09-07] MEDS: D10W 1,000 ML IV SCH (09:15)
[2024-09-07] MEDS ORDERED: PANT40TA29 PO (09:46)
[2024-09-07] MEDS ORDERED: ZINC50TA34 PO (09:46)
[2024-09-07] MEDS ORDERED: ACET500T15 PO (09:48)
[2024-09-07] MEDS ORDERED: DOCU100C16 PO (09:48)
[2024-09-07] MEDS ORDERED: HOME MED LIST COMPLETE! XX SCH (09:50)
[2024-09-07] MEDS: ENOXAPARIN 40MG/0.4ML SYRINGE (J1650 PER 10MG) SC SCH (10:41)
[2024-09-07 11:28] VITALS: BP 122/68; TEMP 97.1; O2SAT 95
[2024-09-07] MEDS: LEVOTHYROXINE 150MCG TABLET (0.15MG) PO SCH (12:38)
[2024-09-07] MEDS: SERTRALINE 100 MG TAB PO SCH (12:38)
[2024-09-07] MEDS: FOLIC ACID 1MG TAB PO SCH (12:38)
[2024-09-07 13:30] VITALS: BP 116/58; TEMP 97.5; O2SAT 95
[2024-09-07 16:00] VITALS: BP 124/61; TEMP 98.8; O2SAT 95
[2024-09-07 20:00] VITALS: BP 157/73; TEMP 98.9; O2SAT 99
[2024-09-08 03:37] VITALS: BP 140/65; TEMP 97.7; O2SAT 98
[2024-09-08 06:49] LABS: BLOOD UREA NITROGEN 10 MG/DL (9-23); CALCIUM LEVEL 8.8 MG/DL (8.3-10.6); CARBON DIOXIDE LEVEL 25 MMOL/L (20-31); CHLORIDE LEVEL 99 MMOL/L (98-107); CREATININE FOR GFR 0.73 MG/DL (0.55-1.30); GLOMERULAR FILTRATION RATE > 60.0 (>32); GLUCOSE, FASTING 90 MG/DL (74-106); POTASSIUM SERUM 4.7 MMOL/L (3.5-5.1); SODIUM LEVEL 133 MMOL/L (136-145)
[2024-09-08 12:00] VITALS: BP 131/56; TEMP 97.2; O2SAT 96
[2024-09-08] MEDS: ACETAMINOPHEN 325 MG TAB PO PRN (16:35)
== END 2024-09-08 17:00 | DRG 918 ==
LOC: EDBD 15:28 → M ED 15:28 → M ED INP 22:32 → M ICU 23:42 → M MS5PR 09-07 20:47
PROVIDERS: ADMIT Internal Medicine Pulmonary Disease; ATTEND General Practice
DX: T38.3X2A Poisoning by insulin and oral hypoglycemic [antidiabetic] drugs, intentional self-harm, initial encounter (principal); E87.0 Hyperosmolality and hypernatremia; F33.2 Major depressive disorder, recurrent severe without psychotic features; E03.9 Hypothyroidism, unspecified; K21.9 Gastro-esophageal reflux disease without esophagitis; K59.00 Constipation, unspecified; Z91.199 Patient's noncompliance with other medical treatment and regimen due to unspecified reason; E87.6 Hypokalemia; I95.1 Orthostatic hypotension; G62.9 Polyneuropathy, unspecified; R73.03 Prediabetes; Z96.651 Presence of right artificial knee joint; Z79.899 Other long term (current) drug therapy; Z88.0 Allergy status to penicillin; Z79.890 Hormone replacement therapy

== ENCOUNTER 2024-09-08 15:46 | Inpatient (IN) | payer MEDICARE ==
[~2024-09-08] VITALS: Ht 152.4 cm; Wt 50.1 kg
[2024-09-08] MEDS: NICOTINE 7 MG/24 HR TRANSDERMAL TD SCH (09:00)
[~2024-09-08 15:46] MED LIST changes: +ACET500T15 PO; +DOCU100C16 PO; +ZINC50TA34 PO
[2024-09-08] MEDS ORDERED: diphenhydrAMINE 25MG CAP PO PRN (16:00)
[2024-09-08] MEDS ORDERED: MOM 30ML SUSPENSION UDC PO PRN (16:00)
[2024-09-08] MEDS ORDERED: MAALOX 30 ML SUSP *UDC PO PRN (16:00)
[2024-09-08] MEDS ORDERED: LORazepam 1 MG TAB PO PRN (16:00)
[2024-09-08] MEDS ORDERED: HOME MED LIST COMPLETE! XX SCH (22:25)
[2024-09-09] MEDS: LEVOTHYROXINE 150MCG TABLET (0.15MG) PO SCH (06:00)
[2024-09-09 06:35] VITALS: BP 135/64; TEMP 97.2; O2SAT 97
[2024-09-09] MEDS ORDERED: ACETAMINOPHEN 500 MG TAB PO PRN (08:25)
[2024-09-09] MEDS: DOCUSATE SODIUM 100MG CAPSULE PO SCH (09:00)
[2024-09-09] MEDS: GABAPENTIN 100 MG CAP PO SCH (09:09)
[2024-09-09] MEDS: SERTRALINE 100 MG TAB PO SCH (09:09)
[2024-09-09] MEDS: PANTOPRAZOLE 40MG TAB (PROTONIX) PO SCH (09:09)
[2024-09-09] MEDS: FOLIC ACID 1MG TAB PO SCH (09:09)
[2024-09-09] MEDS: buPROPion **XL** TABLET 150MG (WELLBUTRIN XL) PO SCH (12:33)
[2024-09-09 15:42] VITALS: BP 126/75; TEMP 97.7; O2SAT 97
[2024-09-10 06:36] VITALS: BP 140/69; TEMP 97.4; O2SAT 95
[2024-09-10] MEDS: ACETAMINOPHEN 325 MG TAB PO PRN (20:38)
[2024-09-11 06:26] VITALS: BP 121/58; TEMP 97.1; O2SAT 99
[2024-09-11 15:51] VITALS: BP 126/66; TEMP 97.7; O2SAT 97
[2024-09-12 06:37] VITALS: BP 124/58; TEMP 96.9; O2SAT 98
[2024-09-12 15:58] VITALS: BP 137/63; TEMP 97.2; O2SAT 96
[2024-09-13 07:07] VITALS: BP 152/70; TEMP 97.4; O2SAT 99
[2024-09-13 15:46] VITALS: BP 111/56; TEMP 97.6; O2SAT 98
[2024-09-13] MEDS: traZODone 50 MG TAB PO PRN (20:13)
[2024-09-14 07:03] VITALS: BP 123/60; TEMP 97; O2SAT 95
[2024-09-14 15:12] VITALS: BP 129/67; TEMP 97.5; O2SAT 98
[2024-09-15 06:34] VITALS: BP 132/61; TEMP 97.5; O2SAT 98
[2024-09-15 15:20] VITALS: BP 127/92; TEMP 97.8
[2024-09-16 06:34] VITALS: BP 128/62; TEMP 97.6; O2SAT 95
[2024-09-16 16:03] VITALS: BP 123/65; TEMP 97.9; O2SAT 95
[2024-09-17 06:23] VITALS: BP 107/59; TEMP 97.5; O2SAT 99
[2024-09-17 15:25] VITALS: BP 128/64; TEMP 97.7; O2SAT 98
[2024-09-17] MEDS: PANTOPRAZOLE 20 MG TAB PO SCH (17:47)
[2024-09-18 06:45] VITALS: BP 99/54; TEMP 97.4; O2SAT 96
[2024-09-18 14:53] VITALS: BP 103/55; TEMP 97.4; O2SAT 98
[2024-09-19 06:09] VITALS: BP 115/53; TEMP 97.7; O2SAT 96
[2024-09-19] MEDS: SERTRALINE 100 MG TAB PO SCH (09:32)
[2024-09-19] MEDS: SERTRALINE HCL 25 MG TABLET PO SCH (09:32)
[2024-09-19 15:53] VITALS: BP 118/62; TEMP 97.5; O2SAT 100
[2024-09-20 06:21] VITALS: BP 122/58; TEMP 97.7; O2SAT 97
[2024-09-20] MEDS ORDERED: POLYVINYL ALCOHOL OPHTH SOLN 15ML (LIQUITEARS) OU PRN (12:50)
[2024-09-20 15:40] VITALS: BP 112/56; TEMP 97.1; O2SAT 95
[2024-09-21 06:27] VITALS: BP 104/70; TEMP 97.7; O2SAT 97
[2024-09-21 15:05] VITALS: BP 116/58; TEMP 98.1; O2SAT 97
[2024-09-22 06:23] VITALS: BP 121/68; TEMP 97.8; O2SAT 97
[2024-09-22 09:47] LABS: ALBUMIN 3.3 G/DL (3.2-5.2); BILIRUBIN,TOTAL 0.2 MG/DL (0.3-1.2); CALCIUM LEVEL 8.5 MG/DL (8.3-10.6); CREATININE FOR GFR 0.86 MG/DL (0.55-1.30); GLOMERULAR FILTRATION RATE 67.8 (>32); POTASSIUM SERUM 3.6 MMOL/L (3.5-5.1); TOTAL PROTEIN 6.2 G/DL (5.7-8.2)
[2024-09-22 15:53] VITALS: BP 130/61; TEMP 98.6; O2SAT 99
[2024-09-23 06:24] VITALS: BP 124/55; TEMP 97.5; O2SAT 96
[2024-09-23 16:31] VITALS: BP 130/64; TEMP 97.5; O2SAT 98
[2024-09-24 06:51] VITALS: BP 139/68; TEMP 97.1; O2SAT 96
[2024-09-24 15:53] VITALS: BP 118/63; TEMP 98; O2SAT 98
[2024-09-25] MEDS ORDERED: FOLI1TAB11 PO (05:37)
[2024-09-25] MEDS ORDERED: SERT25TA21 PO (05:37)
[2024-09-25] MEDS ORDERED: ZOLO100T PO (05:37)
[2024-09-25] MEDS ORDERED: TRAZ-252 PO (05:37)
[2024-09-25] MEDS ORDERED: GABA-1171 PO (05:37)
[2024-09-25] MEDS ORDERED: BUPR150T12 PO (05:37)
[2024-09-25] MEDS ORDERED: POLY1.4S OU (05:37)
[2024-09-25] MEDS ORDERED: DOCU100C16 PO (05:37)
[2024-09-25 06:24] VITALS: BP 118/59; TEMP 97.7; O2SAT 99
== END 2024-09-25 10:55 | disposition home or self-care (01) | DRG 885 ==
LOC: M PSY 16:47
PROVIDERS: ADMIT Internal Medicine; ATTEND Internal Medicine
DX: F33.2 Major depressive disorder, recurrent severe without psychotic features (principal); R45.851 Suicidal ideations; Z88.0 Allergy status to penicillin; E03.9 Hypothyroidism, unspecified; R73.01 Impaired fasting glucose; K21.9 Gastro-esophageal reflux disease without esophagitis; G62.9 Polyneuropathy, unspecified; I95.1 Orthostatic hypotension; Z79.899 Other long term (current) drug therapy

== ENCOUNTER → 2024-09-15 | Outpatient (CLI) | payer MEDICARE | LOC: M SOG 07:52 | PROVIDERS: ATTEND Orthopaedic Surgery | DX: M84.421A Pathological fracture, right humerus, initial encounter for fracture (principal); Z53.9 Procedure and treatment not carried out, unspecified reason ==

== ENCOUNTER → 2024-10-08 | Outpatient (CLI) | payer MEDICARE ==
[~2024-10-08] MED LIST changes: +BUPR150T12 PO; +POLY1.4S OU; +SERT25TA21 PO; +TRAZ-252 PO
== END ==
LOC: M SOG 07:51
PROVIDERS: ATTEND Orthopaedic Surgery
DX: M84.421A Pathological fracture, right humerus, initial encounter for fracture (principal)